=== PATIENT | female | born 1975 | race Asian ===

== ENCOUNTER 2016-07-15 13:36 | Outpatient (CLI) | payer OTHER | END 2016-07-15 15:00 | disposition home or self-care (01) | LOC: MAMMO 13:36 | DX: Z12.31 Encounter for screening mammogram for malignant neoplasm of breast (principal) | CPT/HCPCS: G0202-TC ==

== ENCOUNTER 2018-07-07 08:55 | Outpatient (CLI) | payer OTHER | END 2018-07-07 22:34 | disposition home or self-care (01) | LOC: MAMMO 08:55 | DX: Z12.31 Encounter for screening mammogram for malignant neoplasm of breast (principal) ==

== ENCOUNTER 2020-01-09 09:56 | Day surgery (SDC) | payer OTHER ==
[2020-01-03 10:13] LABS: PLATELET COUNT 237 K/uL (152-353)
[2020-01-03 10:32] LABS: POTASSIUM 3.7 mmol/L (3.6-5.2)
[~2020-01-09] VITALS: Ht 30.5 cm; Wt 0.5 kg
== END 2020-01-09 12:45 | disposition home or self-care (01) ==
LOC: OR 09:56
PROVIDERS: Internal Medicine Gastroenterology
PROC: 0DB68ZZ Excision of Stomach, Via Natural or Artificial Opening Endoscopic (ICD-10-PCS; principal; 2020-01-09)
PROC: 0DB88ZZ Excision of Small Intestine, Via Natural or Artificial Opening Endoscopic (ICD-10-PCS; 2020-01-09)
DX: K25.9 Gastric ulcer, unspecified as acute or chronic, without hemorrhage or perforation (principal); K29.00 Acute gastritis without bleeding; K21.00 Gastro-esophageal reflux disease with esophagitis, without bleeding; R10.13 Epigastric pain; R10.11 Right upper quadrant pain; R11.0 Nausea
CPT/HCPCS: 80053; 85027; J2001; J2704

== ENCOUNTER 2020-06-26 09:30 | Outpatient (CLI) | payer OTHER | END 2020-06-26 21:05 | disposition home or self-care (01) | LOC: MAMMO 09:30 | PROVIDERS: ATTEND Internal Medicine | DX: Z12.31 Encounter for screening mammogram for malignant neoplasm of breast (principal) ==

== ENCOUNTER 2021-01-06 10:17 | Outpatient (CLI) | payer OTHER ==
[2021-01-06 10:38] LABS: PLATELET COUNT 278 K/uL (152-353)
[2021-01-06 11:02] LABS: POTASSIUM 3.9 mmol/L (3.6-5.2)
== END 2021-01-06 20:05 | disposition home or self-care (01) ==
LOC: LABW 10:17
PROVIDERS: ATTEND Internal Medicine
DX: I10 Essential (primary) hypertension (principal)
CPT/HCPCS: 36415; 80053; 80061; 81000; 84439; 84443; 85027

== ENCOUNTER 2022-05-04 16:31 | Outpatient (CLI) | payer OTHER | END 2022-05-04 22:10 | disposition home or self-care (01) | LOC: RAD 16:31 | PROVIDERS: ATTEND Internal Medicine | DX: N64.4 Mastodynia (principal) ==

== ENCOUNTER 2022-05-27 14:04 | Outpatient (CLI) | payer OTHER | END 2022-05-27 19:38 | disposition home or self-care (01) | LOC: US 14:04 | PROVIDERS: ATTEND Internal Medicine | DX: N64.4 Mastodynia (principal) | CPT/HCPCS: G0279 ==

== ENCOUNTER 2022-07-29 08:51 | Outpatient (CLI) | payer OTHER | END 2022-07-29 20:48 | LOC: MRI 08:51 | PROVIDERS: ATTEND Internal Medicine | DX: R51.9 Headache, unspecified (principal) | CPT/HCPCS: 36415; 82565; 84520; A9576 ==

== ENCOUNTER 2022-10-13 14:03 | Outpatient (CLI) | payer OTHER | END 2022-10-13 19:10 | disposition home or self-care (01) | LOC: CT 14:03 | PROVIDERS: ATTEND Internal Medicine | DX: R06.02 Shortness of breath (principal); M79.89 Other specified soft tissue disorders | CPT/HCPCS: 36415; 82565; 83880; 84520; 85379; Q9963 ==